=== PATIENT | male | born 2000 | race Caucasian/White ===

== ENCOUNTER 2021-03-22 13:00 | Outpatient (CLI) | payer OTHER, SELFPAY | END 2021-03-22 23:59 | disposition short-term general hospital (02) | LOC: IMMUN 04-19 13:01 | PROVIDERS: Visit Provider Family Medicine | DX: Z23 Encounter for immunization (principal) ==

== ENCOUNTER 2022-02-09 21:25 | Emergency (ER) | payer OTHER, SELFPAY ==
[2022-02-09 21:26] VITALS: BP 130/71; PULSE 81; RESP 15; TEMP 36.7; O2SAT 95; BMI 29.0
--- NOTE | 2022-02-09 21:58 | ED.RN ---
PT CURRENTLY RX'D ZOLOFT 150MG DAILY STRETERRA 40MG SPIRNOLACTON 100MG DAILY BUT NOT TAKING.
[2022-02-09 22:13] LABS: Amphetamine Urine VISTA NEGATIVE (<1000 ng/mL); Barbiturate Urine VISTA NEGATIVE (< 200 ng/mL); Benzodiazepine Urine VISTA NEGATIVE (< 200 ng/mL); Cocaine Urine VISTA NEGATIVE (< 300 ng/mL); Ecstacy Urine VISTA NEGATIVE (< 500 ng/mL); Methadone Urine VISTA NEGATIVE (< 300 ng/mL); PCP Urine VISTA NEGATIVE (< 25 ng/mL); THC Urine VISTA POSITIVE (< 50 ng/mL); Vista UDS pH Range 5
--- NOTE | 2022-02-09 22:15 | EDS_ITS ---
HPI HPI - Psych History of Present Illness Chief Complaint: Suicidal Informant: patient Onset/Context/Timing Onset: Month(s) (2) Context: Gradual Onset Associated Symptoms Associated Symptoms - Psych: Positive for Depressed, Decreased Concentration, Hopelessness and Suicidal Thoughts Specific plan (suicidal thought): nothing specific noted by pt Narrative Narrative: Patient presents on his own to the local [facility] and was referred here for suicidal ideation. States he has bipolar, more depressed type, has been more more depressed lately and feels like he is spiraling, states tonight he felt like if he went to his home/dorm and was by himself that he might hurt himself, so brought himself to medical attention. States things have been getting worse for the past 2 months since he has been off of his mood stabilizer and bipolar medications, he does not intend to be off the medications but states there are insurance issues that kept him from having them. He denies any recent illness or injury. States he had alcohol within 72 hours ago but none since. Denies any other substance use. He is transgender and takes hormones. [facility] Medical History ADHD Depressed bipolar I disorder Gender dysphoria Suicidal ideation Home Medications divalproex 500 mg tablet,extended release 24 hr 1,000 mg PO DAILY 02/09/22 [History Last Taken Unknown] estradiol 2 mg tablet 2 mg PO QHS 02/09/22 [History Last Taken Unknown] estradiol 2 mg tablet 4 mg PO DAILY 02/09/22 [History Last Taken Unknown] progesterone micronized 100 mg capsule 200 mg PO QHS 02/09/22 [History Last Taken Unknown] Allergy/AdvReac Type Severity Reaction Status Date / Time No Known Allergies Allergy Verified 02/09/22 21:31 Social History Smoking Status: Current every day smoker tobacco type: cigarettes ROS ROS ED Constitutional Constitutional ED: Denies chills or fever(s) Eyes Eyes: Denies change in vision or diplopia ENT ENT ED: Denies rhinorrhea or sore throat Cardiovascular Cardiovascular: Denies chest pain or palpitations Respiratory/Chest Respiratory/Chest: Denies cough or dyspnea Gastrointestinal Gastrointestinal: Denies abdominal pain, diarrhea, nausea or vomiting Genitourinary Genitourinary ED: Denies dysuria or hematuria Musculoskeletal Musculoskeletal: Denies back pain or neck pain Integumentary Denies abscess or rash Neurologic Neurologic: Denies headache(s), paresthesias or weakness Psychiatric Psychiatric: Reports depression, suicidal ideation and suicidal thoughts; Denies homicidal ideation EXAM Physical Exam Const Vital Signs: 02/09/22 21:26 02/09/22 22:26 02/09/22 23:26 Temperature 98.1 F Temperature Source Temporal Pulse Rate 81 Respiratory Rate 15 18 18 Blood Pressure 130/71 H Blood Pressure Mean 90 Pulse Ox 95 Oxygen Delivery Method Room Air Positive well nourished and well developed General Appearance ED: well developed and NAD HEENT Reports moist mucous membranes normocephalic and atraumatic Eyes PERRL and EOMs intact bilaterally General Eye ED: Negative for scleral icterus Neck no lymphadenopathy and supple Resp normal respiratory effort and clear to auscultation bilaterally Cardio no murmurs Rate: regular rate Rhythm: regular rhythm GI non-tender and non-distended Auscultation: normoactive bowel sounds Palpation: soft Back/Spine no CVA tenderness and normal ROM Extremity normal to inspection General Extremety ED: Negative for edema General Extremity: Negative for edema Neuro oriented x3, CN's II-XII intact bilaterally, no sensory deficits noted and gait normal Sensorium / Orientation: alert Motor Exam: strength 5/5 throughout Psych mental status grossly normal, thought process normal, cooperative, activity/motor behavior normal and denies homicidal ideation Mood & Affect: depressed Thought Content: suicidality Skin Lesions: no lesions Rashes: no rashes MDM MDM MDM Narrative Medical decision making narrative: Other than marijuana toxicology is negative, labs are unremarkable patient is medically cleared will discuss with crisis for further evaluation and possible placement to psychiatric facility. Crisis evaluated and agrees with placement, we are still searching for a facility to accept. Patient has been cooperative and will be checked out to the oncoming shift for further observation until placement is found. Lab Data Attestation: I reviewed the patient's lab results. Labs: Laboratory Results - last 24 hr 02/09/22 02/09/22 02/09/22 21:53 22:45 22:45 WBC 9.0 RBC 4.36 L Hgb 14.0 Hct 38.9 L MCV 89.2 MCH 32.1 H MCHC 36.0 RDW Std Deviation 37.6 RDW Coeff of Vaughn 11.6 Plt Count 253 MPV 9.7 Immature Gran % (Auto) 0.200 Neut % (Auto) 65.2 Lymph % (Auto) 27.8 [place] % (Auto) 5.7 Eos % (Auto) 0.8 Baso % (Auto) 0.3 Absolute Neuts (auto) 5.9 Absolute Lymphs (auto) 2.50 Nucleated RBC % 0 Sodium 141 Potassium 3.7 Chloride 110 H Carbon Dioxide 26.0 Anion Gap 5 BUN 9 Creatinine 0.78 Estim Creat Clear Calc 169.30 Est GFR (MDRD) Af Amer 160 Est GFR (MDRD) Non-Af 132 BUN/Creatinine Ratio 11.5 Glucose 103 Calcium 9.0 Urine Opiates Screen NEGATIVE Urine Methadone Screen NEGATIVE Ur Barbiturates Screen NEGATIVE Ur Phencyclidine Scrn NEGATIVE Ur Amphetamines Screen NEGATIVE MDMA (Ecstasy) Screen NEGATIVE U Benzodiazepines Scrn NEGATIVE Urine Cocaine Screen NEGATIVE U Cannabinoids Screen POSITIVE H Ur Drug Screen Comment Ethyl Alcohol 02/09/22 22:45 WBC RBC Hgb Hct MCV MCH MCHC RDW Std Deviation RDW Coeff of Vaughn Plt Count MPV Immature Gran % (Auto) Neut % (Auto) Lymph % (Auto) [place] % (Auto) Eos % (Auto) Baso % (Auto) Absolute Neuts (auto) Absolute Lymphs (auto) Nucleated RBC % Sodium Potassium Chloride Carbon Dioxide Anion Gap BUN Creatinine Estim Creat Clear Calc Est GFR (MDRD) Af Amer Est GFR (MDRD) Non-Af BUN/Creatinine Ratio Glucose Calcium Urine Opiates Screen Urine Methadone Screen Ur Barbiturates Screen Ur Phencyclidine Scrn Ur Amphetamines Screen MDMA (Ecstasy) Screen U Benzodiazepines Scrn Urine Cocaine Screen U Cannabinoids Screen Ur Drug Screen Comment Ethyl Alcohol < 3.0 Discharge Plan Triage Chief Complaint: Suicidal ED Provider: Jamal Wade Dx/Rx/DC Orders Clinical Impression: Suicidal ideation, Bipolar disorder with severe depression Prescriptions: No Action divalproex 500 mg tablet extended release 24 hr 1,000 mg PO DAILY estradiol 2 mg tablet 4 mg PO DAILY estradiol 2 mg tablet 2 mg PO QHS progesterone micronized 100 mg capsule 200 mg PO QHS Primary Care Provider: Care Physician,No Primary Referrals: Care Physician,No Primary [Primary Care Provider] - Disposition Disposition: Psychiatric Hospital or Unit
[2022-02-09 22:26] VITALS: RESP 18
[2022-02-09 22:55] LABS: Absolute Neutrophil Count 5.9 X10^3/uL (2.0-7.7); Basophil# 0.03 X10^3/uL; Basophil% 0.3 % (0-1); Eosinophil# 0.07 X10^3/uL; Eosinophils% 0.8 % (0-5); Hematocrit 38.9 % (40-54); Lymphocyte % 27.8 % (19-41); Mean Corpuscular Hgb 32.1 pg (27.0-32.0); Mean Corpuscular Volume 89.2 fL (80-94); Mean Platelet Vol. 9.7 fl (6.2-12.0); Monocyte# 0.51 X10^3/uL; Monocyte% 5.7 % (0-10); NRBC Flagged by Analyzer 0 % (0-5); Neutrophil # 5.85 X10^3/uL (2.7-7.7); Neutrophil % 65.2 % (47-70); Platelet Count 253 K/mm3 (150-450); RBC Distribution Width CV 11.6 % (11.6-14.6); RBC Distribution Width SD 37.6 fl (35.1-43.9); Red Blood Count 4.36 M/mm3 (4.6-6.2)
[2022-02-09 23:11] LABS: Anion Gap 5 (5-15); BUN 9 mg/dL (7-18); BUN/Creat Ratio 11.5 RATIO (10-20); Chloride 110 mmol/L (98-107); Creatinine, Serum 0.78 mg/dL (0.70-1.30); EST Glomerular Filtration Rate 132 mL/min (>60); Est Glom Filt Rate - Afr Amer 160 mL/min (>60); Glucose 103 mg/dL (74-106); Potassium 3.7 mmol/L (3.5-5.1); Sodium Level 141 mmol/L (136-145)
[2022-02-09 23:26] VITALS: RESP 18
[2022-02-09 23:36] LABS: Alcohol, Blood (Medical)-Serum < 3.0 mg/dL
--- NOTE | 2022-02-09 23:41 | ED.RN ---
CRISIS CALLED [id number]
[2022-02-10] VITALS (8 sets, daily range): BP systolic 124–127; BP diastolic 70–84; PULSE 79–85; RESP 18; TEMP 36.8; O2SAT 97–99
--- NOTE | 2022-02-10 00:35 | ED.RN ---
FAXED PAPERS TO [facility] [phone]
--- NOTE | 2022-02-10 04:04 | ED.RN ---
SEE DOWN TIME CHARTING FROM [id number]
== END 2022-02-10 08:00 ==
PROVIDERS: Emergency Provider Emergency Medicine; Visit Provider Emergency Medicine
DX: F31.9 Bipolar disorder, unspecified (principal); R45.851 Suicidal ideations; F17.210 Nicotine dependence, cigarettes, uncomplicated
CPT/HCPCS: 80048; 80307; 82077; 85025; 87811; 99283